=== PATIENT | male | born 1970 | race African-American/Black ===

== ENCOUNTER 2024-11-24 08:55 | Outpatient (CLI) | payer OTHER, MEDICAID | END 2024-11-24 08:56 | disposition home or self-care (01) | LOC: CSHWCC 08:55 | PROVIDERS: ATTEND Nurse Practitioner Family | DX: E11.621 Type 2 diabetes mellitus with foot ulcer (principal); L97.526 Non-pressure chronic ulcer of other part of left foot with bone involvement without evidence of necrosis; Q72.6 Longitudinal reduction defect of fibula | CPT/HCPCS: 97605 ==

== ENCOUNTER 2025-04-03 09:49 | Outpatient (CLI) | payer OTHER | END 2025-04-03 09:50 | disposition home or self-care (01) | LOC: CSHWCC 09:49 | PROVIDERS: ATTEND Nurse Practitioner Family | DX: E11.621 Type 2 diabetes mellitus with foot ulcer (principal); L97.522 Non-pressure chronic ulcer of other part of left foot with fat layer exposed; Q72.6 Longitudinal reduction defect of fibula ==

== ENCOUNTER 2025-04-11 10:03 | Outpatient (CLI) | payer OTHER | END 2025-04-11 10:04 | disposition home or self-care (01) | LOC: CSHWCC 10:03 | PROVIDERS: ATTEND Nurse Practitioner Family | DX: E11.622 Type 2 diabetes mellitus with other skin ulcer (principal); L97.522 Non-pressure chronic ulcer of other part of left foot with fat layer exposed; Q72.6 Longitudinal reduction defect of fibula | CPT/HCPCS: 11042 ==

== ENCOUNTER 2025-04-30 14:23 | Outpatient (CLI) | payer OTHER | END 2025-04-30 14:24 | disposition home or self-care (01) | LOC: CSHWCC 14:23 | PROVIDERS: ATTEND Nurse Practitioner Family | DX: E11.621 Type 2 diabetes mellitus with foot ulcer (principal); L97.522 Non-pressure chronic ulcer of other part of left foot with fat layer exposed; Q72.6 Longitudinal reduction defect of fibula | CPT/HCPCS: 11042; 99213; G0463 ==

== ENCOUNTER 2025-06-06 10:12 | Outpatient (CLI) | payer OTHER, MEDICAID | END 2025-06-06 10:13 | disposition home or self-care (01) | LOC: CSHWCC 10:12 | PROVIDERS: ATTEND Nurse Practitioner Family | DX: E11.621 Type 2 diabetes mellitus with foot ulcer (principal); L97.522 Non-pressure chronic ulcer of other part of left foot with fat layer exposed; Q72.6 Longitudinal reduction defect of fibula | CPT/HCPCS: 97597 ==

== ENCOUNTER 2025-07-04 09:22 | Outpatient (CLI) | payer OTHER, MEDICAID | END 2025-07-04 09:23 | disposition home or self-care (01) | LOC: CSHWCC 09:22 | PROVIDERS: ATTEND Nurse Practitioner Family | DX: E11.621 Type 2 diabetes mellitus with foot ulcer (principal); L97.522 Non-pressure chronic ulcer of other part of left foot with fat layer exposed; Q72.6 Longitudinal reduction defect of fibula | CPT/HCPCS: 11042; G0463; 99214 ==